=== PATIENT | male | born 1980 | race Native Hawaiian/Other Pacific Islander ===

== ENCOUNTER 2016-06-16 08:17 | Emergency (ER) | payer SELFPAY ==
[~2016-06-16] VITALS: Ht 180.3 cm; Wt 86.5 kg
[2016-06-16 08:19] VITALS: BP 132/86; PULSE 115; RESP 20; TEMP 98.1; O2SAT 96
[2016-06-16] MEDS ORDERED: SODIUM CHLOR 0.9% 1000 ML INJ 1,000 ML IV ONE (08:30)
[2016-06-16] MEDS ORDERED: KETOROLAC TROMETHAMINE 30 MG/ML (IVP) VIAL IV PUSH ONE (08:30)
[2016-06-16] MEDS ORDERED: ONDANSETRON HCL 4 MG/2 ML VIAL IV PUSH ONE (08:30)
--- NOTE | 2016-06-16 08:31 | PD ---
HPI Chief Complaint: GI Complaint Time Seen by Provider: 08:24 Travel History International Travel<30 days: No Contact w/Intl Traveler<30days: No Traveled to known affect area: No History of Present Illness HPI This is a 36-year-old male who presents to the emergency department with 2 days of nausea, vomiting and loose stools. He says everything he tries to eat he throws up. He's had loose watery stools intermittently. He denies any abdominal pain. He does have a headache that's focused around his eyes. His symptoms of been constant, worsening, and he says he hasn't been able to sleep because he felt comfortable. He denies any abdominal pain. He denies any recent travel. He is otherwise healthy and has never had abdominal surgery. He denies any recent antibiotic use. He has no sick contacts that he knows of. [facility] Past Medical History Medical History: Denies Significant Hx Social History Alcohol Use: Yes (social) Tobacco Use: No Allergies-Medications (Allergen,Severity, Reaction): Coded Allergies: No Known Allergies (Unverified , 06/16/16) Reported Meds & Prescriptions Reported Meds & Active Scripts Active No Active Prescriptions or Reported Medications Review of Systems Except as stated in HPI: all other systems reviewed are Neg Physical Exam Narrative GENERAL:Well appearing, no acute distress SKIN: Focused skin assessment warm and dry. HEAD: Atraumatic. Normocephalic. EYES: Pupils equal and round. No injection or drainage. ENT: Dry mucous membranes. NECK: Trachea midline. CARDIOVASCULAR: Regular rate and rhythm. No murmur appreciated. RESPIRATORY: Clear to auscultation. Breath sounds equal bilaterally. GASTROINTESTINAL: Abdomen soft, mildly tender to palpation in the lower abdomen with no rebound or guarding. MUSCULOSKELETAL: No obvious deformities. NEUROLOGICAL: Awake and alert. No obvious cranial nerve deficits. Moving all extremities. PSYCHIATRIC: Appropriate mood and affect; insight and judgment normal. Data Data Last Documented VS Vital Signs Date Time Temp Pulse Resp B/P Pulse Ox O2 Delivery O2 Flow Rate FiO2 06/16/16 08:19 98.1 115 20 132/86 96 Room Air Orders Complete Blood Count With Diff (06/16/16 08:29) Comprehensive Metabolic Panel (06/16/16 08:29) Lipase (06/16/16 08:29) Sodium Chlor 0.9% 1000 Ml Inj (Ns 1000 M (06/16/16 08:30) ^ Insert Iv (06/16/16 08:29) Ondansetron Inj (Zofran Inj) (06/16/16 08:30) Ketorolac Inj (Toradol Inj) (06/16/16 08:30) Labs Laboratory Tests Test 06/16/16 08:45 White Blood Count 10.8 TH/MM3 Red Blood Count 5.44 MIL/MM3 Hemoglobin 16.0 GM/DL Hematocrit 46.8 % Mean Corpuscular Volume 86.2 FL Mean Corpuscular Hemoglobin 29.4 PG Mean Corpuscular Hemoglobin 34.1 % Concent Red Cell Distribution Width 13.8 % Platelet Count 253 TH/MM3 Mean Platelet Volume 9.4 FL Neutrophils (%) (Auto) 70.9 % Lymphocytes (%) (Auto) 23.2 % Monocytes (%) (Auto) 4.4 % Eosinophils (%) (Auto) 1.1 % Basophils (%) (Auto) 0.4 % Neutrophils # (Auto) 7.7 TH/MM3 Lymphocytes # (Auto) 2.5 TH/MM3 Monocytes # (Auto) 0.5 TH/MM3 Eosinophils # (Auto) 0.1 TH/MM3 Basophils # (Auto) 0.0 TH/MM3 CBC Comment DIFF FINAL Differential Comment Sodium Level 139 MEQ/L Potassium Level 3.7 MEQ/L Chloride Level 102 MEQ/L Carbon Dioxide Level 24.8 MEQ/L Anion Gap 12 MEQ/L Blood Urea Nitrogen 9 MG/DL Creatinine 1.27 MG/DL Estimat Glomerular Filtration 65 ML/MIN Rate Random Glucose 135 MG/DL Calcium Level 8.7 MG/DL Total Bilirubin 0.3 MG/DL Aspartate Amino Transf 24 U/L (AST/SGOT) Alanine Aminotransferase 30 U/L (ALT/SGPT) Alkaline Phosphatase 98 U/L Total Protein 8.1 GM/DL Albumin 4.1 GM/DL Lipase 141 U/L [facility] Medical Decision Making Medical Screen Exam Complete: Yes Emergency Medical Condition: Yes Interpretation(s) Afebrile, mild tachycardia, normotensive No leukocytosis Electrolytes are reassuring Lipase is normal Differential Diagnosis Viral gastroenteritis, appendicitis, colitis, dehydration Narrative Course This is a 36-year-old male who presents to the emergency department with nausea , vomiting and diarrhea. He was placed in a monitored an IV was established. His abdominal exam was benign with no focal tenderness in the right upper quadrant or periumbilical area. He is afebrile. Labs are reassuring with no leukocytosis. He was given a liter of IV hydration and Zofran. He feels much better. I suspect he has viral gastroenteritis. He was advised to return to the emergency department if his abdominal pain worsens or if he feels worse. Diagnosis Primary Impression: Viral gastroenteritis Patient Instructions: General Instructions Additional Instructions: If you develop lightheadedness, dizziness, persistent vomiting, inability to eat , or severe abdominal pain return to the emergency department. Followup with your primary care physician in 2-3 days if your symptoms have not resolved. Wash your hands aggressively after using the restroom as to not spread your illness to others. Do not return to work until your symptoms have resolved. Take Zofran as needed for nausea. Med/Other Pt SpecificInfo: Prescription(s) given Scripts Loperamide 2 Mg Cap2 Mg PO DIRECTED PRN (DIARRHEA) #10 CAP One capsule after each loose stool. Not to exceed 8 capsules per day. Prov:Katina Schafer MD 06/16/16 Ondansetron Odt (Zofran Odt)4 Mg Tab4 Mg SL Q6HR PRN (Nausea/Vomiting) #15 TAB Prov:Katina Schafer MD 06/16/16 Disposition: 01 DISCHARGE HOME Condition: Stable Katina Schafer MD June 16, 2016 08:31
[2016-06-16 09:06] LABS: AUTOMATED NEUTROPHIL # 7.7 TH/MM3 (1.8-7.7); BASOPHIL % 0.4 % (0.0-2.0); EOSINOPHIL # 0.1 TH/MM3 (0-0.4); EOSINOPHIL % 1.1 % (0.0-4.0); HEMATOCRIT 46.8 % (39.0-51.0); HEMO FLAGS DIFF FINAL; LYMPH % 23.2 % (9.0-44.0); LYMPHOCYTE # 2.5 TH/MM3 (1.0-4.8); MEAN CELL VOLUME 86.2 FL (80.0-100.0); MEAN CORPUSCULAR HEMOGLOBIN 29.4 PG (27.0-34.0); MEAN CORPUSCULAR HGB CONC 34.1 % (32.0-36.0); MONO % 4.4 % (0.0-8.0); NEUT % 70.9 % (16.0-70.0); PLATELET COUNT 253 TH/MM3 (150-450); RED BLOOD COUNT 5.44 MIL/MM3 (4.50-5.90); RED CELL DISTRIBUTION WIDTH 13.8 % (11.6-17.2); WHITE BLOOD COUNT 10.8 TH/MM3 (4.0-11.0)
[2016-06-16 09:27] LABS: ANION GAP 12 MEQ/L (5-15); AST (GOT) 24 U/L (15-37); BICARBONATE 24.8 MEQ/L (21.0-32.0); BLOOD UREA NITROGEN 9 MG/DL (7-18); CHLORIDE 102 MEQ/L (98-107); GLOMERULAR FILTRATION RATE 65 ML/MIN (>89); POTASSIUM 3.7 MEQ/L (3.5-5.1); SODIUM (NA) 139 MEQ/L (136-145)
[2016-06-16 09:30] LABS: ALKALINE PHOSPHATASE 98 U/L (45-117); ALT (GPT) 30 U/L (12-78); TOTAL BILIRUBIN ADULT 0.3 MG/DL (0.2-1.0)
[2016-06-16] MEDS ORDERED: ZOFR4TAB3 SL (10:07)
[2016-06-16] MEDS ORDERED: LOPE2CAP PO (10:07)
[2016-06-16] MEDS ORDERED: diphenhydrAMINE HCL 50 MG/ML VIAL IV PUSH ONE (10:15)
[2016-06-16] MEDS ORDERED: PROCHLORPERAZINE INJ 10 MG/2 ML VIAL IV PUSH ONE (10:15)
[2016-06-16 10:27] VITALS: RESP 18
== END 2016-06-16 10:58 | disposition home or self-care (01) ==
LOC: NEPC 08:17
DX: A08.4 Viral intestinal infection, unspecified (principal)
CPT/HCPCS: 80053; 83690; 85025; 96361; 96374; 96375; 99284; J0780; J1200; J1885; J2405; J7030

== ENCOUNTER 2016-06-17 13:48 | Emergency (ER) | payer SELFPAY ==
[~2016-06-17] VITALS: Ht 175.3 cm; Wt 80.0 kg
[~2016-06-17 13:48] MED LIST: LOPE2CAP PO; ZOFR4TAB3 SL
[2016-06-17 14:42] VITALS: BP 125/66; PULSE 89; RESP 16; TEMP 98; O2SAT 99
[2016-06-17] MEDS ORDERED: THIAMINE INJ 100 MG in SODIUM CHLORIDE 0.9% INJ 100 ML IV ONE (15:15)
[2016-06-17] MEDS ORDERED: SODIUM CHLOR 0.9% 1000 ML INJ 1,000 ML IV ONE (15:15)
[2016-06-17 15:22] LABS: AUTOMATED NEUTROPHIL # 6.6 TH/MM3 (1.8-7.7); BASOPHIL % 0.4 % (0.0-2.0); EOSINOPHIL # 0.1 TH/MM3 (0-0.4); EOSINOPHIL % 1.4 % (0.0-4.0); HEMATOCRIT 50.5 % (39.0-51.0); HEMO FLAGS DIFF FINAL; LYMPH % 31.2 % (9.0-44.0); LYMPHOCYTE # 3.3 TH/MM3 (1.0-4.8); MEAN CELL VOLUME 87.2 FL (80.0-100.0); MEAN CORPUSCULAR HEMOGLOBIN 29.5 PG (27.0-34.0); MEAN CORPUSCULAR HGB CONC 33.8 % (32.0-36.0); MONO % 5.3 % (0.0-8.0); NEUT % 61.7 % (16.0-70.0); PLATELET COUNT 264 TH/MM3 (150-450); RED BLOOD COUNT 5.79 MIL/MM3 (4.50-5.90); RED CELL DISTRIBUTION WIDTH 14.1 % (11.6-17.2); WHITE BLOOD COUNT 10.6 TH/MM3 (4.0-11.0)
--- NOTE | 2016-06-17 15:30 | PD ---
HPI Chief Complaint: Seizure Time Seen by Provider: 15:15 Travel History International Travel<30 days: No Contact w/Intl Traveler<30days: No Traveled to known affect area: No History of Present Illness HPI This is a 36 year old male who presents to the emergency department with an episode he calls a seizure. Pt. reports yesterday night after having several alcoholic drinks, he went to sleep and this morning when he woke up he started to have hallucinations, felt very anxious, and was feeling shaky, constant, lasting several minutes. He was awake and alert throughout his episode. This has never happened to him before. He reports he has been having loose stool all night and yesterday he was seen in the emergency department he was seen for gastroenteritis. He says that he has episodes where he binges and he said yesterday evening he started again. [facility] Social History Alcohol Use: Yes (social) Tobacco Use: No Substance Use: No Allergies-Medications (Allergen,Severity, Reaction): Coded Allergies: No Known Allergies (Unverified , 06/17/16) Reported Meds & Prescriptions Reported Meds & Active Scripts Active No Active Prescriptions or Reported Medications Review of Systems Except as stated in HPI: all other systems reviewed are Neg Physical Exam Narrative GENERAL:Well appearing, no acute distress SKIN: Focused skin assessment warm and dry. HEAD: Atraumatic. Normocephalic. EYES: Pupils equal and round. No injection or drainage. ENT: Moist mucous membranes NECK: Trachea midline. CARDIOVASCULAR: Regular rate and rhythm. No murmur appreciated. RESPIRATORY: Clear to auscultation. Breath sounds equal bilaterally. GASTROINTESTINAL: Abdomen soft, non-tender, nondistended. MUSCULOSKELETAL: No obvious deformities. NEUROLOGICAL: Awake and alert. No obvious cranial nerve deficits. No dysarthria or aphasia. No upper or lower extremity drift. No upper extremity ataxia. Visual vidal intact. PSYCHIATRIC: Appropriate mood and affect; insight and judgment normal. Data Data Last Documented VS Vital Signs Date Time Temp Pulse Resp B/P Pulse Ox O2 Delivery O2 Flow Rate FiO2 06/17/16 18:01 80 16 117/56 96 Room Air 06/17/16 14:42 98.0 Orders Basic Metabolic Panel (Bmp) (06/17/16 15:00) Urinalysis - C+S If Indicated (06/17/16 15:00) Complete Blood Count With Diff (06/17/16 15:00) Iv Access Insert/Monitor (06/17/16 15:15) Sodium Chlor 0.9% 1000 Ml Inj (Ns 1000 M (06/17/16 15:15) Thiamine Inj (Thiamine Inj) (06/17/16 15:15) Ct Abd/Pel W Iv Contrast(Rout) (06/17/16 ) Lorazepam Inj (Ativan Inj) (06/17/16 17:15) Iohexol 350 Inj (Omnipaque 350 Inj) (06/17/16 19:04) Labs Laboratory Tests Test 06/17/16 15:00 White Blood Count 10.6 TH/MM3 Red Blood Count 5.79 MIL/MM3 Hemoglobin 17.1 GM/DL Hematocrit 50.5 % Mean Corpuscular Volume 87.2 FL Mean Corpuscular Hemoglobin 29.5 PG Mean Corpuscular Hemoglobin 33.8 % Concent Red Cell Distribution Width 14.1 % Platelet Count 264 TH/MM3 Mean Platelet Volume 9.2 FL Neutrophils (%) (Auto) 61.7 % Lymphocytes (%) (Auto) 31.2 % Monocytes (%) (Auto) 5.3 % Eosinophils (%) (Auto) 1.4 % Basophils (%) (Auto) 0.4 % Neutrophils # (Auto) 6.6 TH/MM3 Lymphocytes # (Auto) 3.3 TH/MM3 Monocytes # (Auto) 0.6 TH/MM3 Eosinophils # (Auto) 0.1 TH/MM3 Basophils # (Auto) 0.0 TH/MM3 CBC Comment DIFF FINAL Differential Comment Urine Color LIGHT-YELLOW Urine Turbidity CLEAR Urine pH 6.0 Urine Specific [place] 1.004 Urine Protein NEG mg/dL Urine Glucose (UA) NEG mg/dL Urine Ketones NEG mg/dL Urine Occult Blood NEG Urine Nitrite NEG Urine Bilirubin NEG Urine Urobilinogen LESS THAN 2.0 MG/DL Urine Leukocyte Esterase NEG Urine Squamous Epithelial <1 /hpf Cells Microscopic Urinalysis Comment CULT NOT INDICATED Sodium Level 141 MEQ/L Potassium Level 3.9 MEQ/L Chloride Level 104 MEQ/L Carbon Dioxide Level 28.6 MEQ/L Anion Gap 8 MEQ/L Blood Urea Nitrogen 5 MG/DL Creatinine 1.07 MG/DL Estimat Glomerular Filtration 79 ML/MIN Rate Random Glucose 81 MG/DL Calcium Level 8.9 MG/DL [facility] Medical Decision Making Medical Screen Exam Complete: Yes Emergency Medical Condition: Yes Interpretation(s) Afebrile, no tachycardia, normotensive No leukocytosis electrolytes within normal limits urinalysis with normal limits CT abdomen and pelvis: No acute findings Differential Diagnosis Seizure, alcohol withdrawal, gastroenteritis, diverticulitis, colitis Narrative Course This is a 36-year-old male who presents to the emergency department reporting that he had a seizure. He describes the seizure or shaking all over while he was awake. He says he drove to an urgent care while he was having this episode. In his description it sounds more like a panic attack. I saw him yesterday in the setting of vomiting and diarrhea. He says this is been getting worse and he's been having some abdominal pain. He was placed in a monitor and an IV was established. Labs are obtained which were reassuring. CT abdomen and pelvis demonstrates no surgical etiology of his symptoms. I think the patient is having some early alcohol withdrawal or a panic attack. He was given IV Ativan. I think he can safely be discharged home to follow up with his primary care physician. Diagnosis Primary Impression: Anxiety Patient Instructions: General Instructions Additional Instructions: Follow up with Maria Isabel Smith in regards to psychiatric or substance related issues at: [address] [place], [place] [id number] Med/Other Pt SpecificInfo: No Change to Meds Scripts No Active Prescriptions or Reported Meds Disposition: 01 DISCHARGE HOME Condition: Stable Katina Schafer MD June 17, 2016 15:30
[2016-06-17 15:39] LABS: BLOOD, URINE NEG (NEG); GLUCOSE,URINE NEG (NEG); KETONE, URINE NEG (NEG); NITRITE,URINE NEG (NEG); SQUAMOUS EPITHELIAL CELL URINE <1 /hpf (0-5); URINE COLOR LIGHT-YELLOW (YELLW/STRAW)
[2016-06-17 15:40] LABS: COMMENT (UR) CULT NOT INDICATED; CULTURE IF INDICATED CULT NOT INDICATED
[2016-06-17 15:42] VITALS: BP 136/73; PULSE 69; RESP 18; O2SAT 96
[2016-06-17 15:46] LABS: BICARBONATE 28.6 MEQ/L (21.0-32.0); POTASSIUM 3.9 MEQ/L (3.5-5.1)
[2016-06-17] MEDS ORDERED: LORazepam 2 MG/ML VIAL IV PUSH ONE (17:15)
[2016-06-17 17:17] VITALS: BP 105/57; PULSE 77; RESP 18; O2SAT 99
[2016-06-17 18:01] VITALS: BP 117/56; PULSE 80; RESP 16; O2SAT 96
[2016-06-17] MEDS ORDERED: IOHEXOL 350 MG/ML 10 ML VIAL (for RAD DIAG) IV ONE (19:04)
--- NOTE | 2016-06-17 19:19 | RADRPT ---
EXAM DATE/TIME: 06/17/2016 18:59 [facility] COMPARISON: No previous studies available for comparison. INDICATIONS : Abdominal pain. IV CONTRAST: 100 cc Omnipaque 350 (iohexol) IV ORAL CONTRAST: No oral contrast ingested. RADIATION DOSE: 7.14 CTDIvol (mGy) MEDICAL HISTORY : None SURGICAL HISTORY : None. ENCOUNTER: Initial ACUITY: 1 day PAIN SCALE: 5/10 LOCATION: abdomen TECHNIQUE: Volumetric scanning of the abdomen and pelvis was performed. Using automated exposure control and ad justment of the mA and/or kV according to patient size, radiation dose was kept as low as reasonably achievable to obtain optimal diagnostic quality images. FINDINGS: LOWER LUNGS: The visualized lower lungs are clear. LIVER: Diffusely diminished attenuation suggesting steatosis. No focal mass or biliary ductal dilatation. SPLEEN: Normal size without lesion. PANCREAS: Within normal limits. KIDNEYS: Normal in size and shape. There is no mass, stone or hydronephrosis. ADRENAL GLANDS: Within normal limits. VASCULAR: There is no aortic aneurysm. BOWEL/MESENTERY: The stomach, small bowel, and colon demonstrate no acute abnormality. There is no free intraperitone al air or fluid. ABDOMINAL WALL: Within normal limits. RETROPERITONEUM: There is no lymphadenopathy. BLADDER: No wall thickening or mass. REPRODUCTIVE: Within normal limits. INGUINAL: There is no lymphadenopathy or hernia. MUSCULOSKELETAL: Within normal limits for patient age. CONCLUSION: No acute CT findings in the abdomen or pelvis. Elieser Venegas MD on June 17, 2016 at 19:15 Board Certified Radiologist. This report was verified electronically.
[2016-06-17 20:26] VITALS: BP 125/76
== END 2016-06-17 20:42 | disposition home or self-care (01) ==
LOC: NEPE 13:48
DX: F41.9 Anxiety disorder, unspecified (principal); R11.10 Vomiting, unspecified; R19.7 Diarrhea, unspecified; R10.9 Unspecified abdominal pain
CPT/HCPCS: 74177; 80048; 81001; 85025; 96361; 96365; 96375; 99285; J2060; J3411; J7030; Q9967

== ENCOUNTER 2016-06-24 10:27 | Emergency (ER) | payer SELFPAY ==
[~2016-06-24] VITALS: Ht 180.3 cm; Wt 85.0 kg
[2016-06-24 10:28] VITALS: BP 144/98; PULSE 119; RESP 18; TEMP 97.4; O2SAT 96
[2016-06-24 11:18] VITALS: BP 123/90; PULSE 90; RESP 20; O2SAT 96
[2016-06-24] MEDS ORDERED: SODIUM CHLOR 0.9% 1000 ML INJ 1,000 ML IV SCH (11:23)
[2016-06-24] MEDS ORDERED: LIDOCAINE VISCOUS 2% SOLN 15 ML UDC PO ONE (11:30)
[2016-06-24] MEDS ORDERED: PANTOPRAZOLE SODIUM 40 MG VIAL IVP ONE (11:30)
[2016-06-24] MEDS ORDERED: ALUMINUM/MAGNESIUM/SIMETH 30 ML CUP PO ONE (11:30)
[2016-06-24] MEDS ORDERED: SODIUM CHLORIDE 0.9% FLUSH 10 ML FLUSH IV FLUSH PRN (11:30)
[2016-06-24] MEDS ORDERED: ACETAMINOPHEN 500 MG CPLT PO ONE (11:30)
[2016-06-24] MEDS ORDERED: ONDANSETRON HCL 4 MG/2 ML VIAL IVP ONE (11:30)
--- NOTE | 2016-06-24 11:39 | PD ---
HPI Chief Complaint: GI Complaint Time Seen by Provider: 11:25 Travel History International Travel<30 days: No Contact w/Intl Traveler<30days: No Traveled to known affect area: No History of Present Illness HPI Patient comes in complaining of continued nausea, vomiting, and diarrhea. Patient states symptoms are similar to when he was here week ago. Patient states that he vomits all night. Reports vomitus nonbloody and nonbilious. Reports no blood in stool or darkening of stool. Patient denies doing anything for this. Patient reports associated epigastric pain and headache. Denies any chest pain, shortness of breath, back pain, tingling anywhere, loss change in bladder, being around anyone else with similar. Patient complaining of a burning sensation in his epigastric area that radiates into his chest but only when he vomits. PFSH Past Medical History Medical History: Denies Significant Hx Anxiety: Yes Tetanus Vaccination: Unknown Influenza Vaccination: No Past Surgical History Surgical History: No Previous Surgery Social History Alcohol Use: Yes (OCC) Tobacco Use: Yes Substance Use: No Allergies-Medications (Allergen,Severity, Reaction): Coded Allergies: No Known Allergies (Unverified , 06/17/16) Reported Meds & Prescriptions Reported Meds & Active Scripts Active Vistaril (Hydroxyzine Pamoate) 25 Mg Cap 25 Mg PO Q8HR PRN Bentyl (Dicyclomine HCl) 20 Mg Tab 20 Mg PO TID PRN Zofran Odt (Ondansetron Odt) 4 Mg Tab 4 Mg SL Q6HR PRN Review of Systems Except as stated in HPI: all other systems reviewed are Neg Physical Exam Narrative GENERAL: Well-developed, overly nourished, in no acute distress, and non-ill appearing. SKIN: Focused skin assessment warm and dry. HEAD: Atraumatic. Normocephalic. EYES: Pupils equal and round. EOMI. No scleral icterus. No injection or drainage. ENT: No nasal bleeding or discharge. Mucous membranes pink and moist. NECK: Trachea midline. No JVD. Supple. No nuclear rigidity. CARDIOVASCULAR: Regular rate and rhythm. No murmur appreciated. RESPIRATORY: No accessory muscle use. No respiratory distress. Clear to auscultation. Breath sounds equal bilaterally. GASTROINTESTINAL: Abdomen soft, non-tender, nondistended. Hepatic and splenic margins not palpable. Normal bowel sounds 4. No pulsatile mass. MUSCULOSKELETAL: No obvious deformities. No clubbing. No cyanosis. No edema. Full range of motion. NEUROLOGICAL: Awake and alert. No obvious cranial nerve deficits. Motor grossly within normal limits. Normal speech. PSYCHIATRIC: Appropriate mood and affect; insight and judgment normal. Data Data Last Documented VS Vital Signs Date Time Temp Pulse Resp B/P Pulse Ox O2 Delivery O2 Flow Rate FiO2 06/24/16 11:56 96 Room Air 06/24/16 11:18 90 20 123/90 06/24/16 10:28 97.4 Orders Complete Blood Count With Diff (06/24/16 11:23) Comprehensive Metabolic Panel (06/24/16 11:23) Lipase (06/24/16 11:23) Iv Access Insert/Monitor (06/24/16 11:23) Ecg Monitoring (06/24/16 11:23) Oximetry (06/24/16 11:23) Ondansetron Inj (Zofran Inj) (06/24/16 11:30) Pantoprazole Inj (Protonix Inj) (06/24/16 11:30) Sodium Chlor 0.9% 1000 Ml Inj (Ns 1000 M (06/24/16 11:23) Sodium Chloride 0.9% Flush (Ns Flush) (06/24/16 11:30) Electrocardiogram (06/24/16 11:23) Chest, Single Ap (06/24/16 11:23) Al-Mag Hy-Si 40-40-4 Mg/Ml Liq (Mag-Al P (06/24/16 11:30) Lidocaine 2% Viscous (Xylocaine 2% Visco (06/24/16 11:30) Acetaminophen (Tylenol) (06/24/16 11:30) Labs Laboratory Tests Test 06/24/16 11:51 White Blood Count 6.6 TH/MM3 Red Blood Count 5.65 MIL/MM3 Hemoglobin 16.1 GM/DL Hematocrit 48.9 % Mean Corpuscular Volume 86.5 FL Mean Corpuscular Hemoglobin 28.5 PG Mean Corpuscular Hemoglobin 33.0 % Concent Red Cell Distribution Width 14.3 % Platelet Count 212 TH/MM3 Mean Platelet Volume 8.5 FL Neutrophils (%) (Auto) 64.9 % Lymphocytes (%) (Auto) 28.7 % Monocytes (%) (Auto) 5.9 % Eosinophils (%) (Auto) 0.2 % Basophils (%) (Auto) 0.3 % Neutrophils # (Auto) 4.3 TH/MM3 Lymphocytes # (Auto) 1.9 TH/MM3 Monocytes # (Auto) 0.4 TH/MM3 Eosinophils # (Auto) 0.0 TH/MM3 Basophils # (Auto) 0.0 TH/MM3 CBC Comment DIFF FINAL Differential Comment Sodium Level 139 MEQ/L Potassium Level 4.0 MEQ/L Chloride Level 99 MEQ/L Carbon Dioxide Level 27.9 MEQ/L Anion Gap 12 MEQ/L Blood Urea Nitrogen 2 MG/DL Creatinine 1.12 MG/DL Estimat Glomerular Filtration 75 ML/MIN Rate Random Glucose 92 MG/DL Calcium Level 9.3 MG/DL Total Bilirubin 0.6 MG/DL Aspartate Amino Transf 64 U/L (AST/SGOT) Alanine Aminotransferase 67 U/L (ALT/SGPT) Alkaline Phosphatase 102 U/L Total Protein 8.5 GM/DL Albumin 4.3 GM/DL Lipase 140 U/L [facility] Medical Decision Making Medical Screen Exam Complete: Yes Emergency Medical Condition: Yes Differential Diagnosis Viral gastroenteritis, nausea, vomiting, diarrhea, pancreatitis, electrolyte abnormality, malingering, other Narrative Course 1320 patient reassessed found to be resting comfortably in bed in no acute distress. Reports improvement of symptoms. Patient has not provide a urine sample yet. However patient is afebrile, has no leukocytosis, and is asymptomatic. Therefore UA will be canceled. Prior to discharge patient requesting something for anxiety to go home. The patient presented with abdominal pain vomiting and diarrhea. The patient appeared comfortable, hydrated and the abdominal exam was unremarkable and minimal to nontender to me, and without defined focal tenderness. Laboratory evaluation revealed no significant abnormality. Chest x-ray was negative for pneumonia or free air. There was no evidence of an acute, surgical abdomen at this time. There was no clinical evidence to support bowel obstruction, cholecystitis/cholelithiasis, pancreatitis, perforation of gastric ulcer, colitis, diverticulitis, bacterial peritonitis, obstruction, volvulus, early appendicitis, or hernial incarceration or strangulation at this time. There was no evidence to support vascular pathology such as AAA, mesenteric ischemia, nor significant GIB. There was also no clinical evidence by history, exam or risk factors to suggest atypical presentation of cardiac disease such as ACS, AMI or atypical angina. No evidence to suggest genitourinary etiology as well. During the course of the ED visit, the patient was given IVF and the patient noted improvement. The patient was able to tolerate fluids at discharge. Clinical picture was discussed with the patient, as well as plan of care. The patient was instructed to follow up with their physician. Abdominal pain warnings were discussed with the patient. The patient is to return if worsens, pain worsens or changes, develop fever, inability to tolerate fluids with or without vomiting , unable to establish follow up or as needed. The patient agrees with plan. Patient in no obvious distress upon re-evaluation. All pertinent laboratory/ Radiology result(s) discussed with patient. Discussed patient with Dr. Bradley prior to discharge, who is in agreement with plan of care and disposition. Patient was asked if they wanted to speak to my attending, which the patient did not wish to do at this time. Any questions/concerns in reference to patient diagnosis/condition discussed and clarified prior to patient's discharge. Reinforced sheer importance of close follow up with patient's primary physician or primary care clinic. Instructed patient to return to ED immediately, if symptoms return/worsen. Pt showed understanding of above instructions. Further instructions and recommendations were detailed in discharge paperwork. Pt ambulated without difficulty out of ED at discharge. Diagnosis Primary Impression: Nausea & vomiting Qualified Code: R11.2 - Non-intractable vomiting with nausea, unspecified vomiting type Additional Impressions: Diarrhea Qualified Code: R19.7 - Diarrhea, unspecified type Anxiety Referrals: Anton Soriano [facility] Patient Instructions: Acute Diarrhea (ED), Acute Nausea and Vomiting (ED), Anxiety (ED), General Instructions Additional Instructions: Follow-up with your primary care physician or Richard Smith for further evaluation reported anxiety. You must follow-up with a GI doctor regarding your vomiting and diarrhea for further evaluation. Take all medication as prescribed. Return to the emergency department if symptoms get worse. Med/Other Pt SpecificInfo: Prescription(s) given Scripts Hydroxyzine Pamoate (Vistaril)25 Mg Cap25 Mg PO Q8HR PRN (ANXIETY) #3 CAP Ref 0 Prov:Nayana Bradley MD 06/24/16 Dicyclomine (Bentyl)20 Mg Tab20 Mg PO TID PRN (Bowel Management) #7 TAB Ref 0 Prov:Nayana Bradley MD 06/24/16 Ondansetron Odt (Zofran Odt)4 Mg Tab4 Mg SL Q6HR PRN (Nausea/Vomiting) #7 TAB Ref 0 Prov:Nayana Bradley MD 06/24/16 Disposition: 01 DISCHARGE HOME Condition: Stable Job Santos June 24, 2016 11:39
[2016-06-24 11:56] VITALS: O2SAT 96
[2016-06-24 12:12] LABS: AUTOMATED NEUTROPHIL # 4.3 TH/MM3 (1.8-7.7); BASOPHIL % 0.3 % (0.0-2.0); EOSINOPHIL % 0.2 % (0.0-4.0); HEMATOCRIT 48.9 % (39.0-51.0); HEMO FLAGS DIFF FINAL; LYMPH % 28.7 % (9.0-44.0); LYMPHOCYTE # 1.9 TH/MM3 (1.0-4.8); MEAN CELL VOLUME 86.5 FL (80.0-100.0); MEAN CORPUSCULAR HEMOGLOBIN 28.5 PG (27.0-34.0); MONO % 5.9 % (0.0-8.0); NEUT % 64.9 % (16.0-70.0); PLATELET COUNT 212 TH/MM3 (150-450); RED BLOOD COUNT 5.65 MIL/MM3 (4.50-5.90); RED CELL DISTRIBUTION WIDTH 14.3 % (11.6-17.2); WHITE BLOOD COUNT 6.6 TH/MM3 (4.0-11.0)
[2016-06-24 12:30] LABS: ALT (GPT) 67 U/L (12-78); ANION GAP 12 MEQ/L (5-15); AST (GOT) 64 U/L (15-37); BICARBONATE 27.9 MEQ/L (21.0-32.0); BLOOD UREA NITROGEN 2 MG/DL (7-18); CHLORIDE 99 MEQ/L (98-107); GLOMERULAR FILTRATION RATE 75 ML/MIN (>89); SODIUM (NA) 139 MEQ/L (136-145)
[2016-06-24 12:32] LABS: ALKALINE PHOSPHATASE 102 U/L (45-117); TOTAL BILIRUBIN ADULT 0.6 MG/DL (0.2-1.0)
--- NOTE | 2016-06-24 13:06 | RADRPT ---
EXAM DATE/TIME: 06/24/2016 11:57 [facility] COMPARISON: No previous studies available for comparison. INDICATIONS : Patient has had nausea and vomiting for a week. He states pain in his chest, also. MEDICAL HISTORY : None. SURGICAL HISTORY : None. ENCOUNTER: Initial ACUITY: 1 week PAIN SCORE: 10/10 LOCATION: Bilateral chest FINDINGS: A single view of the chest demonstrates the lungs to be symmetrically aerated without evidence of mas s, infiltrate or effusion. The cardiomediastinal contours are unremarkable. Osseous structures are intact. CONCLUSION: No acute cardiopulmonary process. Crescencio Rossi MD on June 24, 2016 at 13:04 Board Certified Radiologist. This report was verified electronically.
[2016-06-24] MEDS ORDERED: BENT20TA PO (13:25)
[2016-06-24] MEDS ORDERED: ZOFR4TAB3 SL (13:25)
[2016-06-24] MEDS ORDERED: VIST25CA PO (13:25)
--- NOTE | 2016-06-27 13:03 | EKG ---
Date Performed: 06/27/2016 Time Performed: 05:57:48 PTAGE: 36 years EKG: SINUS BRADYCARDIA BORDERLINE ECG NO PREVIOUS TRACING DOCTOR: Sree Santamaria Interpretating Date/Time 06/27/2016 13:01:04
== END 2016-06-24 13:42 | disposition home or self-care (01) ==
LOC: NEPD 10:27
DX: R11.2 Nausea with vomiting, unspecified (principal); R19.7 Diarrhea, unspecified; F41.9 Anxiety disorder, unspecified; Z72.0 Tobacco use
CPT/HCPCS: 71010; 80053; 83690; 85025; 96361; 96374; 96375; 99284; C9113; J2405; J7030

== ENCOUNTER 2016-08-10 23:09 | Emergency (ER) | payer SELFPAY ==
[~2016-08-10] VITALS: Ht 182.9 cm; Wt 88.0 kg
[~2016-08-10 23:09] MED LIST changes: +BENT20TA PO; -LOPE2CAP PO; +VIST25CA PO
[2016-08-10 23:10] VITALS: BP 132/91; PULSE 86; RESP 16; TEMP 97.7; O2SAT 98
[2016-08-11] MEDS ORDERED: SODIUM CHLOR 0.9% 1000 ML INJ 1,000 ML IV SCH (02:34)
--- NOTE | 2016-08-11 02:38 | PD ---
HPI Chief Complaint: Medical Clearance Time Seen by Provider: 02:35 Travel History International Travel<30 days: No Contact w/Intl Traveler<30days: No Traveled to known affect area: No History of Present Illness HPI Patient reports he was transported to the emergency department from [facility] for medical clearance. Patient states he went there for alcohol detox. Patient states any time he stops drinking he starts getting really shaky last occurred 2 days ago. Patient states he last drank yesterday a bottle of vodka. Patient states he's had some associated nausea and vomiting is nonbloody and nonbilious last episode 2 days ago. Denies any chest pain, shortness of breath, fevers, abdominal pain, back pain, or loss or change in bowel or bladder. Patient reports when he stops drinking makes his symptoms worse. Drinking alcohol improves his symptoms. Denies any symptoms currently other than feeling that he might be dehydrated. PFSH Past Medical History Anxiety: Yes Past Surgical History Surgical History: No Previous Surgery Social History Alcohol Use: Yes (FREQUENTLY) Tobacco Use: Yes (1 PPD) Substance Use: No Allergies-Medications (Allergen,Severity, Reaction): Coded Allergies: No Known Allergies (Unverified , 08/10/16) Reported Meds & Prescriptions Reported Meds & Active Scripts Active Vistaril (Hydroxyzine Pamoate) 25 Mg Cap 25 Mg PO Q8HR PRN Zofran Odt (Ondansetron Odt) 4 Mg Tab 4 Mg SL Q6HR PRN Review of Systems Except as stated in HPI: all other systems reviewed are Neg Physical Exam Narrative GENERAL: Well-developed, well nourished, in no acute distress, and non-ill appearing. Alcohol noted on breath. SKIN: Focused skin assessment warm and dry. HEAD: Atraumatic. Normocephalic. EYES: Pupils equal and round. EOMI. No scleral icterus. No injection or drainage. ENT: No nasal bleeding or discharge. Mucous membranes pink and moist. NECK: Trachea midline. Supple. No nuclear rigidity. CARDIOVASCULAR: Regular rate and rhythm. No murmur appreciated. RESPIRATORY: No accessory muscle use. No respiratory distress. Clear to auscultation. Breath sounds equal bilaterally. GASTROINTESTINAL: Abdomen soft, non-tender, nondistended. Hepatic and splenic margins not palpable. Normal bowel sounds 4. No pulsatile mass. MUSCULOSKELETAL: No obvious deformities. No clubbing. No cyanosis. No edema. Full range of motion. NEUROLOGICAL: Awake and alert. No obvious cranial nerve deficits. Motor grossly within normal limits. Normal speech. PSYCHIATRIC: Appropriate mood and affect; insight and judgment normal. Data Data Last Documented VS Vital Signs Date Time Temp Pulse Resp B/P Pulse Ox O2 Delivery O2 Flow Rate FiO2 08/11/16 11:00 102 139/63 94 Room Air 08/11/16 04:41 16 08/10/16 23:10 97.7 Orders Complete Blood Count With Diff (08/11/16 02:33) Comprehensive Metabolic Panel (08/11/16 02:33) Drug Screen, Random Urine (08/11/16 02:33) Alcohol (Ethanol) (08/11/16 02:33) Iv Access Insert/Monitor (08/11/16 02:34) Ecg Monitoring (08/11/16 02:34) Oximetry (08/11/16 02:34) Ondansetron Inj (Zofran Inj) (08/11/16 02:45) Sodium Chlor 0.9% 1000 Ml Inj (Ns 1000 M (08/11/16 02:34) Sodium Chloride 0.9% Flush (Ns Flush) (08/11/16 02:45) Ondansetron Odt (Zofran Odt) (08/11/16 04:00) Lorazepam Inj (Ativan Inj) (08/11/16 04:30) Diet Regular Basic (08/11/16 Breakfast) Labs Laboratory Tests Test 08/11/16 03:30 White Blood Count 7.8 TH/MM3 Red Blood Count 6.05 MIL/MM3 Hemoglobin 18.1 GM/DL Hematocrit 52.6 % Mean Corpuscular Volume 86.9 FL Mean Corpuscular Hemoglobin 29.9 PG Mean Corpuscular Hemoglobin 34.4 % Concent Red Cell Distribution Width 15.9 % Platelet Count 203 TH/MM3 Mean Platelet Volume 8.9 FL Neutrophils (%) (Auto) 46.8 % Lymphocytes (%) (Auto) 36.7 % Monocytes (%) (Auto) 9.4 % Eosinophils (%) (Auto) 6.1 % Basophils (%) (Auto) 1.0 % Neutrophils # (Auto) 3.7 TH/MM3 Lymphocytes # (Auto) 2.9 TH/MM3 Monocytes # (Auto) 0.7 TH/MM3 Eosinophils # (Auto) 0.5 TH/MM3 Basophils # (Auto) 0.1 TH/MM3 CBC Comment DIFF FINAL Differential Comment Sodium Level 138 MEQ/L Potassium Level 4.0 MEQ/L Chloride Level 100 MEQ/L Carbon Dioxide Level 26.1 MEQ/L Anion Gap 12 MEQ/L Blood Urea Nitrogen 6 MG/DL Creatinine 0.90 MG/DL Estimat Glomerular Filtration 97 ML/MIN Rate Random Glucose 90 MG/DL Calcium Level 8.5 MG/DL Total Bilirubin 0.4 MG/DL Aspartate Amino Transf 42 U/L (AST/SGOT) Alanine Aminotransferase 46 U/L (ALT/SGPT) Alkaline Phosphatase 112 U/L Total Protein 8.1 GM/DL Albumin 4.1 GM/DL Ethyl Alcohol Level 247 MG/DL [facility] Medical Decision Making Medical Screen Exam Complete: Yes Emergency Medical Condition: Yes Differential Diagnosis Alcohol intoxication, alcohol withdrawal, electrolyte abnormality, dehydration, other Narrative Course Patient in no obvious distress upon re-evaluation. All pertinent laboratory result(s) discussed with patient. Any questions/concerns in reference to patient diagnosis/condition discussed and clarified prior to patient's discharge. Reinforced sheer importance of close follow up with patient's primary physician or primary care clinic and/or detox facility. Instructed patient to return to ED immediately, if symptoms return/worsen. Pt showed understanding of above instructions. Further instructions and recommendations were detailed in discharge paperwork. Patient will be monitored in the emergency department until clinically sober and able to ambulate on their own or until a sober responsible adult comes to pick them up. RN is aware of this. Pt ambulated without difficulty out of ED at discharge. Diagnosis Primary Impression: Alcohol abuse Referrals: [facility] Patient Instructions: Abuse of Alcohol (ED), General Instructions Additional Instructions: Follow-up with your primary care physician and/or [facility] for alcohol detox today. Return to the emergency department if symptoms get worse. Disposition: 01 DISCHARGE HOME Condition: Stable Job Santos Aug 11, 2016 02:38
[2016-08-11] MEDS ORDERED: SODIUM CHLORIDE 0.9% FLUSH 10 ML FLUSH IV FLUSH PRN (02:45)
[2016-08-11] MEDS ORDERED: ONDANSETRON HCL 4 MG/2 ML VIAL IVP ONE (02:45)
[2016-08-11 03:46] LABS: AUTOMATED NEUTROPHIL # 3.7 TH/MM3 (1.8-7.7); BASOPHIL # 0.1 TH/MM3 (0-0.2); EOSINOPHIL # 0.5 TH/MM3 (0-0.4); EOSINOPHIL % 6.1 % (0.0-4.0); HEMATOCRIT 52.6 % (39.0-51.0); HEMO FLAGS DIFF FINAL; LYMPH % 36.7 % (9.0-44.0); LYMPHOCYTE # 2.9 TH/MM3 (1.0-4.8); MEAN CELL VOLUME 86.9 FL (80.0-100.0); MEAN CORPUSCULAR HEMOGLOBIN 29.9 PG (27.0-34.0); MEAN CORPUSCULAR HGB CONC 34.4 % (32.0-36.0); MONO % 9.4 % (0.0-8.0); NEUT % 46.8 % (16.0-70.0); PLATELET COUNT 203 TH/MM3 (150-450); RED BLOOD COUNT 6.05 MIL/MM3 (4.50-5.90); RED CELL DISTRIBUTION WIDTH 15.9 % (11.6-17.2); WHITE BLOOD COUNT 7.8 TH/MM3 (4.0-11.0)
[2016-08-11] MEDS ORDERED: ONDANSETRON ODT 4 MG TAB PO ONE (04:00)
[2016-08-11 04:12] LABS: ALT (GPT) 46 U/L (12-78); ANION GAP 12 MEQ/L (5-15); AST (GOT) 42 U/L (15-37); BICARBONATE 26.1 MEQ/L (21.0-32.0); BLOOD UREA NITROGEN 6 MG/DL (7-18); CHLORIDE 100 MEQ/L (98-107); GLOMERULAR FILTRATION RATE 97 ML/MIN (>89); SODIUM (NA) 138 MEQ/L (136-145)
[2016-08-11 04:15] LABS: ALKALINE PHOSPHATASE 112 U/L (45-117); TOTAL BILIRUBIN ADULT 0.4 MG/DL (0.2-1.0)
[2016-08-11] MEDS ORDERED: LORazepam 2 MG/ML VIAL IV PUSH ONE (04:30)
[2016-08-11 04:41] VITALS: BP 120/76; PULSE 77; RESP 16; O2SAT 97
[2016-08-11 11:00] VITALS: BP 139/63; PULSE 102; O2SAT 94
== END 2016-08-11 15:51 | disposition home or self-care (01) ==
LOC: NEPD 23:09
DX: F10.10 Alcohol abuse, uncomplicated (principal); R11.2 Nausea with vomiting, unspecified; Y90.8 Blood alcohol level of 240 mg/100 ml or more; F17.210 Nicotine dependence, cigarettes, uncomplicated
CPT/HCPCS: 80053; 80307; 85025; 96361; 96374; 99284; J2060; J7030